=== PATIENT | female | born 1990 | race Hispanic/Latino ===

== ENCOUNTER 2017-12-31 16:13 | Inpatient (IN) | payer OTHER ==
[~2017-12-31] VITALS: Ht 149.9 cm; Wt 68.0 kg
[2017-12-31] VITALS (10 sets, daily range): BP systolic 124–166; BP diastolic 77–104
[2017-12-31] MEDS ORDERED: INSULIN REGULAR, HUMAN 100 UNIT/1 ML 3ML VIAL IV ONE (17:15)
[2017-12-31] MEDS ORDERED: SODIUM CHLORIDE 0.9% 1000ML 1,000 ML ONE ×3 (17:30→18:15)
[2017-12-31] MEDS: SODIUM CHLORIDE 0.9% 1000ML 1,000 ML IV SCH ×3 (17:55→23:00)
[2017-12-31] MEDS ORDERED: DEXTROSE 50% SYRINGE 50 ML IV PRN (18:00)
[2017-12-31] MEDS ORDERED: ONDANSETRON HCL INJ 2 MG/ML VIAL IV PRN (18:00)
[2017-12-31] MEDS ORDERED: POTASSIUM CHLORIDE 20 MEQ TAB CR PO STA (18:55)
[2017-12-31] MEDS: INSULIN REGULAR, HUMAN 100 UNIT/1 ML 3ML VIAL SQ SCH (21:00)
[2017-12-31] MEDS ORDERED: [UNRECOGNIZED DRUG - OTHER] (21:46)
[2017-12-31] MEDS ORDERED: VASOTEC10 M1 PO (21:47)
[2017-12-31] MEDS ORDERED: ATORVASTATIN CA20 MG PO (21:48)
[2017-12-31] MEDS ORDERED: VITAMIN D400 UNIT PO (21:49)
[2017-12-31] MEDS ORDERED: LEVOTHYROXINE112 MCG PO (21:51)
[2017-12-31] MEDS ORDERED: INTEGRA PLUS C1 EACH PO (21:51)
[2017-12-31] MEDS ORDERED: DILTIAZEM 24HR180 MG (21:52)
[2018-01-01] VITALS (18 sets, daily range): BP systolic 126–162; BP diastolic 71–100
[2018-01-01] MEDS: SODIUM CHLORIDE 0.9% 1000ML 1,000 ML IV SCH ×6 (00:30→21:55)
[2018-01-01 05:50] LABS: BASOPHILS % 0.2 % (0.0-1.0); EOSINOPHILS # (AUTO) 0.4 (0.0-0.4); EOSINOPHILS % 5.3 % (0.0-6.0); HEMATOCRIT 29.7 % (34.2-44.1); HEMOGLOBIN 10.3 g/dL (12.0-16.0); LYMPHOCYTES # (AUTO) 3.1 (1.0-3.2); LYMPHOCYTES % 37.6 % (18.0-39.1); MEAN CORPUSCULAR HEMOGLOBIN 27.5 pg (28-32); MEAN CORPUSCULAR HGB CONC 34.7 g/dL (31-35); MEAN CORPUSCULAR VOLUME 79.2 fL (81-99); MONOCYTES # (AUTO) 0.4 (0.2-0.8); MONOCYTES % 5.3 % (4.4-11.3); NEUTROPHILS # (AUTO) 4.2 (2.1-6.9); NEUTROPHILS % 51.4 % (38.7-80.0); PLATELET COUNT 229 x10e3/uL (140-360); RED BLOOD COUNT 3.75 x10e6/uL (3.6-5.1)
[2018-01-01 06:17] LABS: ALANINE AMINOTRANSFERASE 13 IU/L (0-55); ALBUMIN 1.5 g/dL (3.5-5.0); ALBUMIN/GLOBULIN RATIO 0.6 (0.8-2.0); ALKALINE PHOSPHATASE 86 IU/L (40-150); ANION GAP 7.4 mmol/L (8-16); BLOOD UREA NITROGEN 8 mg/dL (7-26); BUN/CREATININE RATIO 13 (6-25); CALCIUM 7.3 mg/dL (8.4-10.2); CARBON DIOXIDE 23 mmol/L (22-29); CHLORIDE 113 mmol/L (98-107); CHOL/HDL RATIO 5.4 (3.0-3.6); CHOLESTEROL 220 MD/DL (0-199); CREATININE, SERUM 0.63 mg/dL (0.57-1.11); EST GLOMERULAR FILTRATION RATE > 60 ML/MIN (60-); GLUCOSE 100 mg/dL (74-118); HDL CHOLESTEROL 41 MG/DL (40-60); LDL CHOLESTEROL 153 MG/DL (60-130); POTASSIUM 3.4 mmol/L (3.5-5.1); SODIUM 140 mmol/L (136-145); TRIGLYCERIDES 128 MG/DL (0-149)
[2018-01-01] MEDS: INSULIN REGULAR, HUMAN 100 UNIT/1 ML 3ML VIAL SQ SCH ×4 (07:30→20:13)
[2018-01-01] MEDS: TRAMADOL/APAP 37.5MG-325MG TAB PO PRN ×2 (11:03→20:55)
[2018-01-01] MEDS ORDERED: NON-FORMULARY MEDICATION (Cholecalciferol (Vitamin D3) (Vitamin D) 50,000 UNITS) PO SCH (11:30)
[2018-01-01] MEDS ORDERED: ACETAMIN/BUTALBITAL/CAFFEINE TAB PO PRN (12:30)
[2018-01-01] MEDS: METOPROLOL TARTRATE 25 MG TAB PO SCH ×2 (12:57→21:00)
--- NOTE | 2018-01-01 13:39 | History and Physical ---
PRIMARY CARE PHYSICIAN: Dr. Romero CHIEF COMPLAINT: Mouth pain and elevated blood glucose. HISTORY OF PRESENT ILLNESS: A 27-year-old woman with a history of diabetes mellitus type 1 with an insulin pump who stopped taking all her medications about 6 months ago except for the insulin. Now there has been pain in the upper part of her mouth with eating and drinking; therefore, she went to urgent care facility at [facility] urgent care. There she was found to have blood glucose as high as 700. She was transitioned here for further care at [facility]. Patient comments that her mouth pain, glucose have improved. Denies any chest pain, shortness of breath, fevers, chills, sweats, nausea. PAST MEDICAL HISTORY: Diabetes mellitus type 1, hypertension, hyperlipidemia, hypothyroidism, MRSA groin and buttock infection. PAST SURGICAL HISTORY: Insulin pump placement, tonsillectomy in 1997, abscess of the groin, butt and legs, , D and C, gastric sleeve. ALLERGIES: BACTRIM . SOCIAL HISTORY: Patient is single. She has 7 children. No illicits or cigarettes. She drinks alcohol occasionally. MEDICATIONS: Per electronic record. REVIEW OF SYSTEMS: Denies any dizziness, chest pain, shortness of breath, fevers, chills, sweats, nausea, vomiting, diarrhea, leg pain, headache. VITAL SIGNS: Have been reviewed. PHYSICAL EXAMINATION GENERAL APPEARANCE: A tired-appearing woman resting in bed. HEENT: Anicteric. Pupils respond to light. No oral lesions. No lesion in the upper part of the mouth. No dental caries. CARDIOVASCULAR: Normal S1, S2. LUNGS: Moderate breath sounds. ABDOMEN: Soft, nontender, nondistended. EXTREMITIES: No edema or calf tenderness. NEUROLOGIC: Alert, oriented times 3. Moving all extremities. SKIN: Dry. PSYCHIATRIC: Normal affect. LABS AND MEDICATIONS: Reviewed. ASSESSMENT: A 27-year-old woman. 1. Uncontrolled diabetes mellitus type 1. 2. Hypokalemia. 3. Hyperlipidemia. 4. Hypertension. 5. Microcytic anemia, moderate. 6. Obesity. PLAN 1. Continue insulin regimen and she received about 5 liters of fluid. Continue rehydration. Start diabetic diet. 2. Obtain CT scan of the mouth and maxillofacial sinuses with contrast to evaluate for any possible developing abscess. Obtain a sed rate. 3. SCD. 4. Followup CT scan finding. If negative may be discharged home later today. Job#: [id number] ISAMAR
[2018-01-01] MEDS: ENALAPRIL MALEATE 10 MG TAB PO SCH (17:15)
--- NOTE | 2018-01-01 20:19 | Diagnostic Imaging Report ---
History:Ledbetter when she eats. Mouth pain all over. Rule out abscess Comparison studies: None Technique: Axial images were obtained through the facial region. Coronal and sagittal images reconstructed from the axial data. Intravenous contrast: 100 cc of Omnipaque 300. Findings: Soft tissues: No abnormalities. Bones: No fractures or bony abnormalities. Orbits: Globes: Intact. Extra or intraconal abnormalities: None. Paranasal sinuses: Clear IMPRESSION: 1. Normal examination, no evidence of soft tissue abscess. Signed by: DR Pierre Hendrickson M.D. on 01/01/2018 8:16 PM
[2018-01-01] MEDS ORDERED: ATORVASTATIN 20 MG TAB PO SCH (21:00)
[2018-01-01] MEDS ORDERED: IOPAMIDOL 370 MG/ML 200 ML INFUS..BTL INJ ONE (22:42)
[2018-01-01] MEDS ORDERED: SODIUM CHLORIDE 0.9% 50ML 50 ML ONE (22:42)
[2018-01-02 00:05] VITALS: BP 131/85
[2018-01-02] MEDS: SODIUM CHLORIDE 0.9% 1000ML 1,000 ML IV SCH ×2 (01:30→05:01)
[2018-01-02 05:31] VITALS: BP 143/87
[2018-01-02] MEDS ORDERED: LEVOTHYROXINE SODIUM 112 MCG TAB PO SCH (06:00)
[2018-01-02] MEDS ORDERED: Acetamin/Butalbital/Caffeine PO (06:49)
[2018-01-02] MEDS ORDERED: Tramadol/Apap 37.5MG-325MG PO (06:49)
[2018-01-02] MEDS: INSULIN REGULAR, HUMAN 100 UNIT/1 ML 3ML VIAL SQ SCH (07:30)
[2018-01-02] MEDS: METOPROLOL TARTRATE 25 MG TAB PO SCH (08:23)
[2018-01-02] MEDS: ENALAPRIL MALEATE 10 MG TAB PO SCH (08:23)
[2018-01-02 08:24] VITALS: BP 174/97
[2018-01-02 08:27] VITALS: BP 174/97
[2018-01-02 09:27] VITALS: BP 156/96
[2018-01-04] MEDS ORDERED: ERGOCALCIFEROL 50,000 UNIT CAP PO SCH (10:00)
== END 2018-01-02 09:29 | disposition home or self-care (01) | DRG 638 ==
LOC: FSED 16:13 → ERHOLD 18:32 → ICU 21:24 → IMCU 01-01 10:58
PROVIDERS: ADMIT Internal Medicine; ATTEND Internal Medicine
DX: E10.65 Type 1 diabetes mellitus with hyperglycemia (principal); E87.1 Hypo-osmolality and hyponatremia; Z79.4 Long term (current) use of insulin; Z96.41 Presence of insulin pump (external) (internal); I10 Essential (primary) hypertension; E78.5 Hyperlipidemia, unspecified; E03.9 Hypothyroidism, unspecified; Z86.14 Personal history of Methicillin resistant Staphylococcus aureus infection; E87.6 Hypokalemia; D50.9 Iron deficiency anemia, unspecified; E66.9 Obesity, unspecified; Z68.29 Body mass index [BMI] 29.0-29.9, adult
CPT/HCPCS: 36415; 70487; 80053; 80061; 81025; 82948; 83036; 84132; 85025; 85651; 96374; 99284; J2405; J7030; J7799; Q9967

== ENCOUNTER 2018-01-05 19:05 | Emergency (ER) | payer OTHER ==
[~2018-01-05] VITALS: Ht 149.9 cm; Wt 70.8 kg
[~2018-01-05 19:05] MED LIST: ATORVASTATIN CA20 MG PO; Acetamin/Butalbital/Caffeine PO; DILTIAZEM 24HR180 MG; INTEGRA PLUS C1 EACH PO; LEVOTHYROXINE112 MCG PO; Tramadol/Apap 37.5MG-325MG PO; VASOTEC10 M1 PO; VITAMIN D400 UNIT PO; [UNRECOGNIZED DRUG - OTHER]
[2018-01-05] MEDS ORDERED: FUROSEMIDE INJ 10 MG/ML 4 ML VIAL IV ONE (20:45)
[2018-01-05] MEDS ORDERED: INSULIN REGULAR, HUMAN 100 UNIT/1 ML 3ML VIAL IV ONE (20:45)
[2018-01-05 21:20] VITALS: BP 154/99
== END 2018-01-05 21:17 | disposition home or self-care (01) ==
LOC: FSED 19:05
DX: R06.00 Dyspnea, unspecified (principal); R73.9 Hyperglycemia, unspecified; R60.0 Localized edema; E88.09 Other disorders of plasma-protein metabolism, not elsewhere classified
CPT/HCPCS: 71046; 80053; 81003; 82553; 83880; 84484; 85025; 93005; 99284; J1940

== ENCOUNTER 2022-11-04 22:11 | Emergency (ER) | payer OTHER ==
[~2022-11-04] VITALS: Ht 149.9 cm; Wt 76.7 kg
[2022-11-04] MEDS ORDERED: SOD POLYSTYRENE SULFONATE SUSP 15 GM/60 ML BTL PO ONE (23:00)
[2022-11-04] MEDS ORDERED: SOD POLYSTYRENE SULFONATE SUSP 15 GM/60 ML BTL ONE (23:01)
[2022-11-04] MEDS ORDERED: SPS PO (23:11)
[2022-11-04 23:15] VITALS: BP 129/76
== END 2022-11-04 23:15 | disposition home or self-care (01) ==
LOC: FSED 22:15
DX: E87.5 Hyperkalemia (principal); I10 Essential (primary) hypertension; E11.9 Type 2 diabetes mellitus without complications; E78.5 Hyperlipidemia, unspecified; E03.9 Hypothyroidism, unspecified; G62.9 Polyneuropathy, unspecified; Z98.84 Bariatric surgery status
CPT/HCPCS: 80053; 99283